=== PATIENT | female | born 1980 | race Two or more races ===

== ENCOUNTER 2016-02-14 09:25 | Emergency (ER) | payer SELFPAY ==
[~2016-02-14] VITALS: Ht 167.6 cm; Wt 104.3 kg
[2016-02-14 09:25] VITALS: BP 142/89
[2016-02-14] MEDS ORDERED: DiphenhydrAMINE 50mg/ml Inj IVP ONE (09:30)
[2016-02-14] MEDS ORDERED: fentaNYL 100 mcg/2 mL IV ONE (09:30)
[2016-02-14] MEDS ORDERED: Metoclopramide 10mg/2ml Inj IVP ONE (09:30)
--- NOTE | 2016-02-14 09:30 | Emergency Room Report ---
History of Present Illness General Chief Complaint: Complications Source: Patient Present Illness HPI Patient presents with abdominal pain. It became severe this morning. She's also had spotting and vaginal bleeding. This morning she's passed clots and used 2 pads within the last couple of hours. The pain is severe suprapubic intermittent and cramping. She has any fevers or dysuria. 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 She has no live children. Her last period was November 29 and she was told she is 10 weeks . She believes her blood type is O positive. No fever, chills, discharge, URI sy, dyspnea, chest pain, rashes. Allergies: Coded Allergies: No Known Allergies (Unverified , 02/14/16) Patient History Past Medical History: see triage record Social History: Reports: smoking - prior Social History Narrative Last Menstrual Period: 11/30/2015 Now: Yes : 4 Para: 0 Reviewed Nursing Documentation: PMH: Agreed, PSxH: Agreed Nursing Documentation-PMH Past Medical History: No History, Except For Hx Hypertension: Yes Review of Systems All Other Systems: negative except mentioned in HPI Physical Exam Vital Signs Date Time Temp Pulse Resp B/P Pulse Ox O2 Delivery O2 Flow Rate FiO2 02/14/16 09:14 98.1 99 18 142/77 100 Room Air Sp02 EP Interpretation: reviewed, normal General Appearance: GCS 15, mild distress Head: normocephalic Eyes: bilateral eye PERRL, bilateral eye normal inspection ENT: moist mucus membranes Neck: supple Respiratory: lungs clear, normal breath sounds Cardiovascular #1: regular rate, rhythm Cardiovascular #2: 2+ radial (R) Gastrointestinal: normal inspection, normal bowel sounds, non-distended, tenderness, overweight Genitourinary: other - pelvic after passed tissue. No active bleeding, os open , no POCs, uterus hard to size but sl large and not tender Musculoskeletal: back normal, gait/station normal, normal range of motion Neurologic: alert, oriented x3 - grossly normal Psychiatric: anxious - in pain Skin: normal inspection, warm/dry Medical Decision Making Diagnostic Impression: Primary Impression: Miscarriage ER Course Patient presents with vaginal bleeding and suprapubic pain. Differential includes threatened miscarriage, ectopic, UTI most others. Patient has severe pain and needs to be evaluated emergently. She will be receiving IV hydration labs ultrasound and pelvic exam will be done. She'll also receive analgesics in medication for nausea. Improved with passing tissue. Exam after, no sig bleeding. H/H and WBC OK. Improved with less pain. POC sent for cytogenic karyotyping. Stable for outpatient observation and treatment. Laboratory Tests Test 02/14/16 09:32 White Blood Count 11.6 K/UL (4.8-10.8) H Red Blood Count 4.81 M/UL (4.20-5.40) Hemoglobin 13.5 G/DL (12.0-16.0) Hematocrit 43.4 % (37.0-47.0) Mean Corpuscular Volume 90 FL (80-99) Mean Corpuscular Hemoglobin 28.0 PG (27.0-31.0) Mean Corpuscular Hemoglobin Concent 31.0 G/DL (32.0-36.0) L Red Cell Distribution Width 13.9 % (11.6-14.8) Platelet Count 225 K/UL (150-450) Mean Platelet Volume 10.5 FL (6.5-10.1) H Neutrophils (%) (Auto) 72.0 % (45.0-75.0) Lymphocytes (%) (Auto) 21.9 % (20.0-45.0) Monocytes (%) (Auto) 4.1 % (1.0-10.0) Eosinophils (%) (Auto) 0.8 % (0.0-3.0) Basophils (%) (Auto) 1.2 % (0.0-2.0) Prothrombin Time 9.7 SEC (9.30-11.50) Prothrombin Time INR 1.0 (0.9-1.1) PTT 27 SEC (23-33) Sodium Level 139 mEQ/L (135-145) Potassium Level 4.1 mEQ/L (3.4-4.9) Chloride Level 99 mEQ/L (98-107) Carbon Dioxide Level 23 mEQ/L (20-30) Anion Gap 17 (5-15) H Blood Urea Nitrogen 11 mg/dL (7-23) Creatinine 0.6 mg/dL (0.5-0.9) Estimate Glomerular Filtration Rate > 60 mL/min (>60) Glucose Level 94 mg/dL (74-106) Calcium Level 8.8 mg/dL (8.6-10.2) Total Bilirubin 0.3 mg/dL (0.0-1.2) Aspartate Amino Transferase (AST) 15 U/L (5-40) Alanine Aminotransferase (ALT) 21 U/L (3-33) Alkaline Phosphatase 53 U/L (35-104) Total Protein 6.9 g/dL (6.6-8.7) Albumin 3.6 g/dL (3.5-5.2) Globulin 3.3 g/dL Albumin/Globulin Ratio 1.0 (1.0-2.7) Lipase 20 U/L (< 60) Human Chorionic Gonadotropin, Quant 1868 mIU/mL Microbiology Date/Time Source Procedure Growth Status 02/14/16 13:55 Vaginal Wet Prep - Final Complete CT/MRI/US Diagnostic Results CT/MRI/US Diagnostic Results : Imaging Test Ordered: pelvic u/s Impression prelim with no ectopic Impression: Endometrial fluid collection, could represent a gestational sac in which case this could represent a early or nonviable intrauterine , but this cannot be stated for certain; pseudo-gestational sac of ectopic not completely excludable. Correlate with clinical findings and serial beta hCGs Debris in the endocervical canal, nonspecific, could represent blood Negative for adnexal mass or free cul-de-sac fluid Last Vital Signs Date Time Temp Pulse Resp B/P Pulse Ox O2 Delivery O2 Flow Rate FiO2 02/14/16 14:35 98.1 90 18 141/81 100 Room Air Status: improved Disposition: HOME, SELF-CARE Condition: Improved Scripts Tramadol Hcl* (ULTRAM*) 50 Mg Tablet 50 MG ORAL Q6H Y for For Pain, #10 TAB 0 Refills Prov: Raffaele Shahid M.D. 02/14/16 Ibuprofen* (MOTRIN*) 600 Mg Tablet 600 MG ORAL Q8H Y for For Pain, #20 TAB 0 Refills Prov: Raffaele Shahid M.D. 02/14/16 Raffaele Shahid M.D. Feb 14, 2016 09:30
[2016-02-14 10:06] LABS: BASOPHILS % (AUTO) 1.2 % (0.0-2.0); EOSINOPHILS % (AUTO) 0.8 % (0.0-3.0); LYMPHOCYTES % (AUTO) 21.9 % (20.0-45.0); MEAN CORPUSCULAR VOLUME 90 FL (80-99); MEAN PLATELET VOLUME 10.5 FL (6.5-10.1); MONOCYTES % (AUTO) 4.1 % (1.0-10.0); PLATELET COUNT 225 K/UL (150-450); RED BLOOD COUNT 4.81 M/UL (4.20-5.40); RED CELL DISTRIBUTION WIDTH 13.9 % (11.6-14.8); WHITE BLOOD COUNT 11.6 K/UL (4.8-10.8)
[2016-02-14 10:11] LABS: PROTHROMBIN TIME 9.7 SEC (9.30-11.50)
[2016-02-14 10:12] LABS: ALANINE AMINOTRANSFERASE 21 U/L (3-33); ANION GAP 17 (5-15); ASPARTATE AMINO TRANSFERASE 15 U/L (5-40); CALCIUM 8.8 mg/dL (8.6-10.2); CARBON DIOXIDE 23 mEQ/L (20-30); CHLORIDE 99 mEQ/L (98-107); CREATININE 0.6 mg/dL (0.5-0.9); GLOMERULAR FILTRATION RATE > 60 mL/min (>60); HEMOLYSIS 10; LIPASE 20 U/L (< 60); POTASSIUM 4.1 mEQ/L (3.4-4.9); SODIUM 139 mEQ/L (135-145); TOTAL PROTEIN 6.9 g/dL (6.6-8.7)
[2016-02-14] MEDS ORDERED: UNOBMED (11:06)
[2016-02-14 12:00] VITALS: BP 106/59
[2016-02-14 14:00] VITALS: BP 141/81
[2016-02-14] MEDS ORDERED: TRAMADOL HCL50 MG ORAL (14:15)
[2016-02-14] MEDS ORDERED: IBUPROFEN600 MG ORAL (14:15)
[2016-02-14 14:35] VITALS: BP 141/81
--- NOTE | 2016-03-06 14:03 | Diagnostic Imaging Report ---
Indication: Positive test, heavy vaginal bleeding Technique: Transabdominal and transvaginal images Comparison: None Findings: Small saclike structure with fluid is seen in the endometrium, measures 11 mm in diameter. There is not definite decidual reaction. There is a round structure centrally which could represent a small yolk sac. No pole or heart activity demonstrated. Debris is seen in the endocervical canal. No myometrial abnormality. Left ovary measures 3.1 cm length. Right ovary measures 2.8 cm length. No adnexal mass or cyst demonstrated. No free cul-de-sac fluid Impression: Endometrial fluid collection, could represent a gestational sac in which case this could represent a early or nonviable intrauterine , but this cannot be stated for certain; pseudo-gestational sac of ectopic not completely excludable. Correlate with clinical findings and serial beta hCGs Debris in the endocervical canal, nonspecific, could represent blood Negative for adnexal mass or free cul-de-sac fluid
== END 2016-02-14 14:35 | disposition home or self-care (01) ==
LOC: EDBD 09:25 → EMR 11:23
DX: O03.9 Complete or unspecified spontaneous abortion without complication (principal)
CPT/HCPCS: 36415; 76801; 76830; 80053; 83690; 84702; 85025; 85610; 85730; 86850; 86900; 86901; 87210; 96361; 96374; 96375; 99284; J1200; J2765; J3010